=== PATIENT | female | born 1980 | race Caucasian/White ===

== ENCOUNTER → 2017-09-26 | Outpatient (CLI) | payer OTHER ==
[~2017-09-26] MED LIST: ACETAMINOPHEN-1 EAC1 PO; PREDNISONE 20 M20 MG PO; TRAMADOL 50 MG50 MG PO
--- NOTE | ~2017-09-26 | PFR/MVV ---
[facility] [place] [address] PULMONARY FUNCTION MVV/REPORT Name: KIMBERLY BAEZ Room #: [facility]#: [id number] Admission: 09/26/17 Attend Phys: FLORESITA Mariano Discharge: Date of : 80 Report #: [id number] THIS REPORT FOR: //name// COPIES FOR: AGE: 37 SEX/RACE: F/C >> SPIROMETRY: (BTPS) Height: 66 in cm Weight: 127 lbs kg Exam Date: 09/26/17 PRE-RX POST-RX PRED BEST %PRED BEST %PRED %CHG FVC LITERS . 3.64 . 3.61 . 99 . 3.62 . 99 . 0 FEV1 LITERS . 3.05 . 3.20 . 105 . 2.98 . 98 . -7 FEV1/FVC % . 85 . 89 . 104 . 82 . 97 . -7 UOQ05-91% L/Sec . 3.49 . 3.80 . 109 . 2.96 . 85 . -22 PEF L/SEC . 6.55 . 6.35 . 97 . 4.70 . 72 . -26 FEF50/FIF50 UNITLESS . <1.00 . 9.69 . . 1.41 . . -85 MVV L/Min . 110 . 45 . 41 f 1/Min . . 135 . >> LUNG VOLUMES: (BTPS) PRE-RX POST-RX PRED AVG %PRED AVG %PRED %CHG VC Liters . 3.64 . 3.61 . 99 . . . TLC Liters . 5.48 . 5.86 . 107 . . . RV Liters . 1.80 . 2.25 . 125 . . . RV/TLC % . 32 . 38 . 122 . . . FRC PL Liters . 3.19 . 3.52 . 110 . . . FRC N2 Liters . 3.19 . . . . . ERV Liters . . 1.26 . . . . IC Liters . . 2.31 . . . . >> DIFFUSION: DLCO ml/Min/mmHg . 21.8 . 17.7 . 81 . . . DL Allison ml/Min/mmHg . 21.8 . 17.7 . 81 . . . DLCO/VA ml/Min/mmHg . 4.36 . 4.55 . 104 . . . VA Liters . . 3.88 . . . . [facility] [address] [place] [address] PULMONARY FUNCTION MVV/REPORT Name: KIMBERLY BAEZ Leny Room #: [facility]#: [id number] Admission: 09/26/17 Attend Phys: FLORESITA Mariano Discharge: Date of : 80 Report #: [id number] COMMENTS: COMMENTS: >> RESISTANCE: PRE-RX PRED AVG %PRED Raw Total cmH20/L/Sec . . 3.45 . Raw Insp cmH20/L/Sec . . 6.57 . Raw Exp cmH20/L/Sec . . 3.42 . Raw cmH20/L/Sec . 1.18 . 1.57 . 133 Gaw L/Sec/cmH20 . 0.766 . 0.638 . 83 sRaw cmH20 Sec . 3.77 . 5.16 . 137 sGaw l/cmH20 Sec . 0.265 . 0.194 . 73 Vtq Liters . . 3.29 . # = OUTSIDE 95% CONFIDENCE INTERVAL CALIBRATION: PRED: 3.00 ACTUAL: EXP 3.01 INSP 3.02 [facility]-OL10-06 [facility]-05 N-1804-4 >> INTERPRETATION/IMPRESSION: CC: Marixa Clark SPIROMETRY: Normal. There is no significant bronchodilator response. Lung volumes are normal. Diffusion capacity is normal. Flow volume loop is normal. IMPRESSION: Normal pulmonary functions. By: Taiwo Shrestha MD /nt
== END ==
LOC: PUL 10:11
DX: R06.02 Shortness of breath (principal)

== ENCOUNTER → 2019-09-03 | Outpatient (CLI) | payer OTHER | LOC: SJCVCIMAG 10:22 | PROVIDERS: ATTEND Internal Medicine | DX: I49.1 Atrial premature depolarization (principal); I49.49 Other premature depolarization; Z68.1 Body mass index [BMI] 19.9 or less, adult ==